=== PATIENT | male | born 1955 | race Caucasian/White ===

== ENCOUNTER 2022-07-26 10:10 | Emergency (ER) | payer MEDICARE, BC, SELFPAY ==
[2022-07-26 10:12] VITALS: BP 128/77; PULSE 76; RESP 16; TEMP 35.9; O2SAT 97; BMI 27.9
--- NOTE | 2022-07-26 10:29 | ED.GENADULT ---
HPI - General Adult General Chief complaint: Cough Stated complaint: Cough, congestion for 2 weeks Time Seen by Provider: 07/26/22 10:15 Source: patient Mode of arrival: ambulatory Limitations: no limitations History of Present Illness HPI narrative: Patient is a 67 year male coming in today complaining of upper respiratory symptoms going on for 2 weeks. States that he coughs on and off. Sometimes he has chills, however, this occurred when the symptoms 1st started when he has not had any for quite some time. He denies any fevers. He states that his appetite has been wonderful and that he has been sleeping really well at night. He complains of feeling congested with a hoarse voice. No weight changes. He states that he generally feels better and feels that his symptoms have gotten better including a slight amelioration of his cough, fatigue and congestion, however, he is not completely recovered. He comes into the ER today to make sure that he isn't missing something that he should be doing to get better. Patient does have Crohn's disease and is on Remicade injections. Related Data Home Medications Medication Instructions Recorded Confirmed atorvastatin 40 mg tablet 40 mg PO DAILY 07/26/22 07/26/22 cyanocobalamin (vitamin B-12) 1,000 mcg IM .monthly 07/26/22 07/26/22 1,000 mcg/mL injection solution fluticasone 100 mcg-salmeterol 50 1 inh inhalation Q12H 07/26/22 07/26/22 mcg/dose blistr powdr for inhalation (Advair Diskus) hydrochlorothiazide 25 mg tablet 25 mg PO DAILY 07/26/22 07/26/22 potassium chloride 10 mEq 10 meq PO DAILY 07/26/22 07/26/22 tablet,extended release Allergies Allergy/AdvReac Type Severity Reaction Status Date / Time No Known Drug Allergies Allergy Verified 07/26/22 10:18 Review of Systems Status of ROS: Reports: 10 or more systems reviewed and unremarkable except as noted in History and below Exam Narrative: Exam Narrative: Well-nourished well-developed patient in no acute distress. Alert and oriented. Answers questions appropriately. Mood and affect are appropriate. Thoughts are goal oriented and rational. No tangential or magical thinking noted. Patient speaks in full sentences without needing to catch their breath. Speech is not slurred or pressured. He does have a hoarse voice. HEENT: Normocephalic atraumatic. Pupils are equally round reactive to light. Extraocular muscles are intact. Conjunctivae are moist without any icterus noted. Moist mucous membranes. Posterior pharynx is normal. Neck is soft without any lymphadenopathy or thyromegaly. No masses are appreciated. He can breathe through each naris without difficulty. Cardiovascular: Heart is regular rate and rhythm S1 and S2 are present without any murmurs. Lungs: Clear to auscultation bilaterally no wheezes rhonchi or rales are appreciated. Patient takes deep breaths without any discomfort. Abdomen: Soft and nontender nondistended with normal bowel sounds. Extremities: Bilateral lower extremities are without edema. Skin: Well perfused without any obvious rashes. Const: Vital Signs, click to edit/add: Vital Signs - 24 hr 07/26/22 10:12 Temperature 96.7 F L Pulse Rate [Right Pulse Oximeter] 76 Respiratory Rate 16 Blood Pressure [Ri ght Upper Arm] 128/77 Pulse Oximetry 97 Oxygen Delivery Me thod Room Air Course Vital Signs Vital signs: Initial Vital Signs Temperature 96.7 F L 07/26/22 10:12 Temperature Source Temporal Artery Scan 07/26/22 10:12 Pulse Rate 76 07/26/22 10:12 Respiratory Rate 16 07/26/22 10:12 Blood Pressure 128/77 07/26/22 10:12 Blood Pressure Mean 94 07/26/22 10:12 Blood Pressure Position Sitting 07/26/22 10:12 Pulse Oximetry 97 07/26/22 10:12 Oxygen Delivery Method 07/26/22 10:12 Vital Signs Temperature 96.7 F L 07/26/22 10:12 Pulse Rate 76 07/26/22 10:12 Respiratory Rate 16 07/26/22 10:12 Blood Pressure 128/77 07/26/22 10:12 Pulse Oximetry 97 07/26/22 10:12 Oxygen Delivery Method 07/26/22 10:12 Temperature 96.7 F L 07/26/22 10:12 Pulse Rate 76 07/26/22 10:12 Respiratory Rate 16 07/26/22 10:12 Blood Pressure 128/77 07/26/22 10:12 Pulse Oximetry 97 07/26/22 10:12 Oxygen Delivery Method 07/26/22 10:12 Medical Decision Making MDM Narrative Medical decision making narrative: [age] year old male with cold symptoms going on for 2 weeks. He has a normal appetite, sleeping well at night, no fevers. He has a normal exam without any lung abnormalities noted. We discussed doing further testing such as x-ray and lab work, however, I do not feel that this is necessary given his history and physical today. Patient tells me that he feels comfortable not doing any further testing today as well. We discussed reasons to return to the ER which would include worsening symptoms, fever. Patient felt comfortable with this. Discharge Plan Discharge Clinical Impression: URI (upper respiratory infection) Patient Disposition: Home, Self-Care Condition: Stable Additional Instructions: Follow-up with your primary care provider if you feel like you are not improving over the next 1-2 weeks. Return to the ER if you develop a fever, vomiting or worsening symptoms. Prescriptions: No Action atorvastatin 40 mg tablet 40 mg PO DAILY Label Comments: TAKE ONE TABLET BY MOUTH ONE TIME DAILY AT BEDTIME cyanocobalamin (vitamin B-12) 1,000 mcg/mL solution 1,000 mcg IM .monthly Label Comments: INJECT 1 ML INTRAMUSCULARLY ONCE A MONTH. fluticasone propion-salmeterol [Advair Diskus] 100-50 mcg/dose blister with device 1 inh INHALATION Q12H hydrochlorothiazide 25 mg tablet 25 mg PO DAILY Label Comments: Take 0.5 Tablets (12.5 mg) by mouth once daily potassium chloride 10 mEq tablet extended release 10 meq PO DAILY Label Comments: TAKE ONE TABLET BY MOUTH ONE TIME DAILY with a meal Follow Up/Referrals: Saskia Uriostegui MD [Primary Care Provider] - Stand Alone Forms: [facility] Info Instructions
== END 2022-07-26 10:47 | disposition home or self-care (01) ==
LOC: ED 10:33
PROVIDERS: Emergency Provider Family Medicine; PCP Family Medicine
DX: J06.9 Acute upper respiratory infection, unspecified (principal)
CPT/HCPCS: 99282; 99283

== ENCOUNTER 2023-06-20 09:20 | Emergency (ER) | payer MEDICARE, BC, SELFPAY ==
[2023-06-20 09:29] VITALS: BP 155/91; PULSE 60; RESP 18; TEMP 36.1; O2SAT 96; BMI 26.6
[2023-06-20 09:45] LABS: Appearance Urine Slightly Cloudy (Clear); Bilirubin Urine Negative (Negative); Blood Urine 3+ (Negative); Color Urine Yellow (Yellow); Glucose Urine Negative (Negative); Ketones Urine Negative (Negative); Leukocyte Esterase Urine Negative (Negative); Nitrite Urine Negative (Negative); Protein Urine Trace (Negative); Specific Gravity Urine 1.025 (1.000-1.030); Urobilinogen Urine 0.2 (0.2-1.0); pH Urine 5.5 (5.0-8.5)
[2023-06-20 09:50] LABS: Bacteria Urine Few; Mucus Urine Few; RBC Urine >100 (0-2); Squamous Epithelial Cell Urine Few (None-Few); WBC Urine 0-2 (0-5)
--- NOTE | 2023-06-20 09:58 | ED_ITS ---
HPI - General Adult General Chief complaint: Flank Pain Stated complaint: kidney stones Time Seen by Provider: 06/20/23 09:57 History of Present Illness HPI narrative: pt states he has history of kidney stones, sees urologist in [place]. last kidney stones were 4-5 months ago bilateral stones. pt woke this morning with right flank pain, feels like i have a stone. Pain 5/10. 67-year-old man presenting to the emergency department with complaint of right low back pain. Known history of nephrolithiasis. He says last imaging would of been 3 or 4 months ago. Also had lithotripsy for 8 and 10 mm stones. Uncertain stone burden. He isn't noting any hematuria or dysuria. No fever. No nausea. He says that he was told that if he thinks he is starting to have a kidney stone again he suppose to get in right away, inferring and then stating that he is to have CT imaging. This was while I was enquiring about most recent imaging discussing alternatives to immediate CT imaging Related Data Home Medications Medication Instructions Recorded Confirmed atorvastatin 40 mg tablet 40 mg PO DAILY 07/26/22 07/26/22 cyanocobalamin (vitamin B-12) 1,000 mcg IM .monthly 07/26/22 07/26/22 1,000 mcg/mL injection solution fluticasone 100 mcg-salmeterol 50 1 inh inhalation Q12H 07/26/22 07/26/22 mcg/dose blistr powdr for inhalation (Advair Diskus) hydrochlorothiazide 25 mg tablet 25 mg PO DAILY 07/26/22 07/26/22 potassium chloride 10 mEq 10 meq PO DAILY 07/26/22 07/26/22 tablet,extended release Previous Rx's Medication Instructions Recorded hydrocodone 5 mg-acetaminophen 325 1 tab PO QID pain #15 tabs 06/20/23 mg tablet oxycodone-acetaminophen 5 mg-325 1 - 2 tab PO Q6H PRN pain #12 tabs 06/20/23 mg tablet (Percocet) tamsulosin 0.4 mg capsule (Flomax) 0.4 mg PO DAILY #15 caps 06/20/23 Allergies Allergy/AdvReac Type Severity Reaction Status Date / Time No Known Drug Allergies Allergy Verified 07/26/22 10:18 Review of Systems Status of ROS: Reports: 6 or more systems reviewed and unremarkable except as noted in History and below [facility] Social History Smoking Status: Never smoker Do you use any of these nicotine containing products: None How often do you have a drink containing alcohol: never AUDIT-C Alcohol total score: 0 Non-prescribed substance use: denies use service: No Exam Narrative: Exam Narrative: Is actually sleeping when I enter the room. Wakes easily. Breathing easily. Skin is warm and dry. Is not demonstrating any percussive tenderness at the flank. Abdomen is soft and nontender. Normoactive bowel sounds. Extremities are well perfused without edema. Heart in regular to nearly bradycardic rate in normal rhythm. Const: Vital Signs, click to edit/add: Vital Signs - 24 hr 06/20/23 09:29 06/20/23 11:34 06/20/23 12:04 Temperature 97.0 F L 97.6 F 98.0 F Pulse Rate [Pulse Oximeter] 60 60 60 Respiratory Rate 18 16 16 Blood Pressure [Ri t Upper Arm] 155/91 H 106/68 138/65 Pulse Oximetry 96 98 98 Oxygen Delivery Me thod Room Air Room Air Room Air Documenting provider has reviewed patient's vital signs: yes Course Vital Signs Vital signs: Initial Vital Signs Temperature 97.0 F L 06/20/23 09:29 Temperature Source Temporal Artery Scan 06/20/23 09:29 Pulse Rate 60 06/20/23 09:29 Pulse Rhythm Regular 06/20/23 09:29 Respiratory Rate 18 06/20/23 09:29 Blood Pressure 155/91 H 06/20/23 09:29 Blood Pressure Mean 112 H 06/20/23 09:29 Blood Pressure Position Supine 06/20/23 09:29 Pulse Oximetry 96 06/20/23 09:29 Oxygen Delivery Method Room Air 06/20/23 09:29 Vital Signs Temperature 97.0 F L 06/20/23 09:29 Pulse Rate 60 06/20/23 09:29 Respiratory Rate 18 06/20/23 09:29 Blood Pressure 155/91 H 06/20/23 09:29 Pulse Oximetry 96 06/20/23 09:29 Oxygen Delivery Method Room Air 06/20/23 09:29 Temperature 98.0 F 06/20/23 12:04 Pulse Rate 60 06/20/23 12:04 Respiratory Rate 16 06/20/23 12:04 Blood Pressure 138/65 06/20/23 12:04 Pulse Oximetry 98 06/20/23 12:04 Oxygen Delivery Method Room Air 06/20/23 12:04 Medical Decision Making MDM Narrative Medical decision making narrative: Certainly may be having a kidney stone. I did obtain urinalysis just prior to going into the room. Has a good deal of blood. Given history I would suspect a ureteral stone and colic. I have been discussing that if stone burden only indicated 2 mm stones perhaps on recent imaging perhaps a could be deferred but expectations and recommendations apparently are for imaging. I have ordered a CT. Differential otherwise would include vascular disruption, low back pain of varying etiologies. Labs are pending as well. I go over again with him his level of pain and he said he would like some pain medications. IV with normal saline be given along with ketorolac and morphine. Labs reviewed. Creatinine is 1.5. I did review CT imaging of the abdomen and pelvis Radiology over-read below. IMPRESSION: 1. Right pelvocaliectasis and ureterectasis with abrupt transition in the pelvis. There is a 5 mm calculus within the urinary bladder. A recently passed stone could result in a similar appearance. However, there is also some possible scarring with tethering in the distal ureter detailed above. If this is of concern, consider CT urogram versus nuclear medicine Lasix scintigraphy. 2. Multiple nonobstructing left renal calculi. Spoke to [place] [facility] on-call today and reviewed images, symptoms. Recommending outpatient follow-up. Already scheduled for September See patient discharge plan Lab Data Lab results reviewed: Yes I reviewed the patient's lab results Labs: Lab Results 06/20/23 06/20/23 06/20/23 Range/Units 10:10 Unknown Unknown WBC 5.06 (4.50-11.00) K/uL RBC 4.08 L (4.30-5.90) m/uL Hgb 12.5 L (13.5-17.5) gm/dL Hct 38.6 (37.0-53.0) % MCV 95 (80-100) fL MCH 31 (26-34) pg MCHC 32 (32-36) gm/dL RDW Coeff of [place] 12.4 (11.5-15.5) % Plt Count 152 (140-440) K/uL Neut % (Auto) 63.4 (42.0-72.0) % Lymph % (Auto) 22.1 (20-44) % [place] % (Auto) 11.1 H (0.0-11.0) % Eos % (Auto) 3.0 (0.0-7.0) % Baso % (Auto) 0.4 (0.0-3.0) % Neut # (Auto) 3.21 (1.7-7.0) K/uL Lymph # (Auto) 1.12 (0.90-2.90) K/uL [place] # (Auto) 0.60 (0.00-0.90) K/UL Eos # (Auto) 0.15 (0.00-0.50) K/uL Baso # (Auto) 0.02 (0.00-0.30) K/uL Abs Immat Gran (auto) 0.00 (0.00-0.30) K/uL Imm/Tot Granulo (auto) 0.0 % Sodium 139 (135-149) mmol/L Potassium 3.9 (3.6-5.1) mmol/L Chloride 103 (96-114) mmol/L Carbon Dioxide 26 (20-32) mmol/L Anion Gap 10 (7-15) mEq/L BUN 11 (7-30) mg/dL Creatinine 1.5 (0.5-1.5) mg/dL Estimated Creat Clear 46.48 Estimated GFR 50 ml/min Glucose 90 (60-115) mg/dL Calcium 8.6 (8.4-10.6) mg/dL Urine Color Yellow (Yellow) Urine Appearance Slightly Cloudy A (Clear) Urine pH 5.5 (5.0-8.5) Ur Specific [place] 1.025 (1.000-1.030) Urine Protein Trace A (Negative) Urine Glucose (UA) Negative (Negative) Urine Ketones Negative (Negative) Urine Blood 3+ A (Negative) Urine Nitrite Negative (Negative) Urine Bilirubin Negative (Negative) Urine Urobilinogen 0.2 (0.2-1.0) Ur Leukocyte Esterase Negative (Negative) Urine RBC Cancelled >100 A Urine WBC Cancelled Urine WBC Clumps Ur Squamous Epith Cells Andi Biurate Crystals Calcium Carbonate Cryst Calcium Phosphate Cryst Calcium Oxalate Crystal Cystine Crystals Uric Acid Crystals Triple Phos Crystals Sulfur Crystals Cholesterol Crystals Tyrosine Crystals Hippuric Acid Crystals Amorphous Sediment Other Sediment Urine Bacteria Fatty Casts Hyaline Casts Fine Granular Casts Coarse Granular Casts Waxy Casts RBC Casts WBC Casts Other Casts Urine Starch Urine Mucus Urine Trichomonas Urine Yeast 06/20/23 06/20/23 06/20/23 Range/Units Unknown Unknown Unknown WBC (4.50-11.00) K/uL RBC (4.30-5.90) m/uL Hgb (13.5-17.5) gm/dL Hct (37.0-53.0) % MCV (80-100) fL MCH (26-34) pg MCHC (32-36) gm/dL RDW Coeff of [place] (11.5-15.5) % Plt Count (140-440) K/uL Neut % (Auto) (42.0-72.0) % Lymph % (Auto) (20-44) % [place] % (Auto) (0.0-11.0) % Eos % (Auto) (0.0-7.0) % Baso % (Auto) (0.0-3.0) % Neut # (Auto) (1.7-7.0) K/uL Lymph # (Auto) (0.90-2.90) K/uL [place] # (Auto) (0.00-0.90) K/UL Eos # (Auto) (0.00-0.50) K/uL Baso # (Auto) (0.00-0.30) K/uL Abs Immat Gran (auto) (0.00-0.30) K/uL Imm/Tot Granulo (auto) % Sodium (135-149) mmol/L Potassium (3.6-5.1) mmol/L Chloride (96-114) mmol/L Carbon Dioxide (20-32) mmol/L Anion Gap (7-15) mEq/L BUN (7-30) mg/dL Creatinine (0.5-1.5) mg/dL Estimated Creat Clear Estimated GFR ml/min Glucose (60-115) mg/dL Calcium (8.4-10.6) mg/dL Urine Color (Yellow) Urine Appearance (Clear) Urine pH (5.0-8.5) Ur Specific [place] (1.000-1.030) Urine Protein (Negative) Urine Glucose (UA) (Negative) Urine Ketones (Negative) Urine Blood (Negative) Urine Nitrite (Negative) Urine Bilirubin (Negative) Urine Urobilinogen (0.2-1.0) Ur Leukocyte Esterase (Negative) Urine RBC Urine WBC 0-2 Urine WBC Clumps Cancelled Ur Squamous Epith Cells Cancelled Few [place] Biurate Crystals Cancelled Calcium Carbonate Cryst Cancelled Calcium Phosphate Cryst Cancelled Calcium Oxalate Crystal Cancelled Cystine Crystals Cancelled Uric Acid Crystals Cancelled Triple Phos Crystals Cancelled Sulfur Crystals Cancelled Cholesterol Crystals Cancelled Tyrosine Crystals Cancelled Hippuric Acid Crystals Cancelled Amorphous Sediment Cancelled Other Sediment Cancelled Urine Bacteria Cancelled Few A Fatty Casts Cancelled Hyaline Casts Cancelled Fine Granular Casts Cancelled Coarse Granular Casts Cancelled Waxy Casts Cancelled RBC Casts Cancelled WBC Casts Cancelled Other Casts Cancelled Urine Starch Cancelled Urine Mucus Cancelled Urine Trichomonas Urine Yeast 06/20/23 Range/Units Unknown WBC (4.50-11.00) K/uL RBC (4.30-5.90) m/uL Hgb (13.5-17.5) gm/dL Hct (37.0-53.0) % MCV (80-100) fL MCH (26-34) pg MCHC (32-36) gm/dL RDW Coeff of [place] (11.5-15.5) % Plt Count (140-440) K/uL Neut % (Auto) (42.0-72.0) % Lymph % (Auto) (20-44) % [place] % (Auto) (0.0-11.0) % Eos % (Auto) (0.0-7.0) % Baso % (Auto) (0.0-3.0) % Neut # (Auto) (1.7-7.0) K/uL Lymph # (Auto) (0.90-2.90) K/uL [place] # (Auto) (0.00-0.90) K/UL Eos # (Auto) (0.00-0.50) K/uL Baso # (Auto) (0.00-0.30) K/uL Abs Immat Gran (auto) (0.00-0.30) K/uL Imm/Tot Granulo (auto) % Sodium (135-149) mmol/L Potassium (3.6-5.1) mmol/L Chloride (96-114) mmol/L Carbon Dioxide (20-32) mmol/L Anion Gap (7-15) mEq/L BUN (7-30) mg/dL Creatinine (0.5-1.5) mg/dL Estimated Creat Clear Estimated GFR ml/min Glucose (60-115) mg/dL Calcium (8.4-10.6) mg/dL Urine Color (Yellow) Urine Appearance (Clear) Urine pH (5.0-8.5) Ur Specific [place] (1.000-1.030) Urine Protein (Negative) Urine Glucose (UA) (Negative) Urine Ketones (Negative) Urine Blood (Negative) Urine Nitrite (Negative) Urine Bilirubin (Negative) Urine Urobilinogen (0.2-1.0) Ur Leukocyte Esterase (Negative) Urine RBC Urine WBC Urine WBC Clumps Ur Squamous Epith Cells [place] Biurate Crystals Calcium Carbonate Cryst Calcium Phosphate Cryst Calcium Oxalate Crystal Cystine Crystals Uric Acid Crystals Triple Phos Crystals Sulfur Crystals Cholesterol Crystals Tyrosine Crystals Hippuric Acid Crystals Amorphous Sediment Other Sediment Urine Bacteria Fatty Casts Hyaline Casts Fine Granular Casts Coarse Granular Casts Waxy Casts RBC Casts WBC Casts Other Casts Urine Starch Urine Mucus Few A Urine Trichomonas Cancelled Urine Yeast Cancelled Discharge Plan Discharge Clinical Impression: Ureteral colic, Ureteral stone Patient Disposition: Home w/ Parent or Adult Condition: Improved Instructions: Renal Colic (ED) Additional Instructions: Continue to focus on hydration. Please check in with [place] [facility] to see if they have any further recommendations. Medications sent in to pharmacy. Consider taking the Flomax regularly over the next few days until sure of stone passage. Consider straining your urine over the next week. Return for persistent pain after 4 days, marked increase in persistent pain, repeated vomiting, fever. Take this disc of images to follow up. Prescriptions: New oxycodone-acetaminophen [Percocet] 5-325 mg tablet 1 - 2 tab PO Q6H PRN (Reason: pain) Qty: 12 0RF tamsulosin [Flomax] 0.4 mg capsule 0.4 mg PO DAILY Qty: 15 1RF hydrocodone-acetaminophen 5-325 mg tablet 1 tab PO QID Qty: 15 0RF No Action atorvastatin 40 mg tablet 40 mg PO DAILY Patient Comments: TAKE ONE TABLET BY MOUTH ONE TIME DAILY AT BEDTIME cyanocobalamin (vitamin B-12) 1,000 mcg/mL solution 1,000 mcg IM .monthly Patient Comments: INJECT 1 ML INTRAMUSCULARLY ONCE A MONTH. fluticasone propion-salmeterol [Advair Diskus] 100-50 mcg/dose blister with device 1 inh INHALATION Q12H hydrochlorothiazide 25 mg tablet 25 mg PO DAILY Patient Comments: Take 0.5 Tablets (12.5 mg) by mouth once daily potassium chloride 10 mEq tablet extended release 10 meq PO DAILY Patient Comments: TAKE ONE TABLET BY MOUTH ONE TIME DAILY with a meal Follow Up/Referrals: Saskia Uriostegui MD [Referring] - Stand Alone Forms: [facility] Info Instructions
--- NOTE | 2023-06-20 10:04 | CRLHL7_ITS ---
For Patients: As a result of the 21st Century Cures Act, medical imaging exams and procedure reports are released immediately into your electronic medical record. You may view this report before your referring provider. If you have questions, please contact your health care provider. INDICATION: Right flank pain and history of kidney stones COMPARISON: 05/18/2021 TECHNIQUE: CT of the abdomen and pelvis without intravenous contrast. Multiplanar axial, coronal, and sagittal reformats were reconstructed. Intravenous contrast: None. Oral contrast was not administered. FINDINGS: Lung bases: Bibasilar peripheral reticulation. Liver: Normal size and non-contrast attenuation. Gallbladder and biliary tree: Large calcified stone at the fundus. No cholecystitis. No biliary duct dilation. Pancreas: Normal. Spleen: Normal size. Adrenal glands: Normal. No nodules. Kidneys and bladder: There is significant right pelvocaliectasis and proximal and mid ureterectasis. There is abrupt transition or the ureter passes over the internal iliac artery. There appears to be some soft tissue distortion and tethering at this location. The calcifications in the vicinity are all atherosclerotic, confirmed by comparison to the previous exam. The distal ureter is decompressed. No right perinephric stranding. No right intrarenal calculi. No solid or cystic mass seen. Multiple left intrarenal calculi. No left ureteral calculi. No left urinary tract dilatation. No solid or cystic renal mass. The urinary bladder is partially filled. There is a 5 mm calculus in the posterior dependent urinary bladder. GI: Right colectomy. Focally dilated small bowel at the anastomosis in the right upper lateral abdomen. No dilatation of what appears to be the ileocolonic anastomosis in the anterior central abdomen, at the level of the mid transverse colon. No findings of bowel obstruction. No mesenteric inflammation. There is a moderate stool burden.. Vessels: Normal caliber abdominal aorta with moderate calcified atherosclerotic plaques. Peritoneum: No free fluid. Lymph nodes: No adenopathy. Pelvis: No pelvic mass. Bones: No fractures. No focal bone lesions. Multilevel disc degenerative change. Abdominal wall: Hypervascular lipomatous hypertrophy in and around the left internal oblique muscle in the left lower quadrant. There is some adjacent skin tethering in distortion, question prior colostomy site. IMPRESSION: 1. Right pelvocaliectasis and ureterectasis with abrupt transition in the pelvis. There is a 5 mm calculus within the urinary bladder. A recently passed stone could result in a similar appearance. However, there is also some possible scarring with tethering in the distal ureter detailed above. If this is of concern, consider CT urogram versus nuclear medicine Lasix scintigraphy. 2. Multiple nonobstructing left renal calculi. Please note that all CT scans at this facility use dose modulation, iterative reconstruction, and/or weight-based dosing when appropriate to reduce radiation dose to as low as reasonably achievable. Dictated by Felicia Prasad MD @ 06/20/2023 10:44:48 AM (Electronically Signed)
[2023-06-20 10:18] LABS: Basophils Absolute Auto 0.02 K/uL (0.00-0.30); Basophils Percent Auto 0.4 % (0.0-3.0); Eosinophils Absolute Auto 0.15 K/uL (0.00-0.50); Hematocrit 38.6 % (37.0-53.0); Hemoglobin* 12.5 gm/dL (13.5-17.5); Lymphocytes Absolute Auto 1.12 K/uL (0.90-2.90); Lymphocytes Percent Auto 22.1 % (20-44); Mean Corpuscular HGB Conc 32 gm/dL (32-36); Mean Corpuscular Hemoglobin 31 pg (26-34); Mean Corpuscular Volume 95 fL (80-100); Monocytes Percent Auto 11.1 % (0.0-11.0); Neutrophils Absolute Auto 3.21 K/uL (1.7-7.0); Neutrophils Percent Auto 63.4 % (42.0-72.0); Platelet Count* 152 K/uL (140-440); RDW Coefficient of Variation % 12.4 % (11.5-15.5); Red Blood Count 4.08 m/uL (4.30-5.90); White Blood Count* 5.06 K/uL (4.50-11.00)
[2023-06-20] MEDS: 0.9 % SODIUM CHLORIDE 1000 ml 1,000 ML IV (10:19)
[2023-06-20] MEDS: KETOROLAC 30 MG/ML inj IVP (10:19)
[2023-06-20] MEDS: MORPHINE 4 MG/ML INJ IVP (10:21)
[2023-06-20 10:31] LABS: Chloride* 103 mmol/L (96-114); Sodium* 139 mmol/L (135-149)
[2023-06-20 10:32] LABS: Potassium* 3.9 mmol/L (3.6-5.1)
[2023-06-20 10:34] LABS: Anion Gap 10 mEq/L (7-15); Carbon Dioxide* 26 mmol/L (20-32); Creatinine* 1.5 mg/dL (0.5-1.5); Est. Creatinine Clearance* 46.48; Estimated Glomerular Filt Rate 50 ml/min
[2023-06-20 10:35] LABS: Blood Urea Nitrogen* 11 mg/dL (7-30); Calcium* 8.6 mg/dL (8.4-10.6); Glucose* 90 mg/dL (60-115)
[2023-06-20 10:38] LABS: Slide Review Reflex No
[2023-06-20 11:34] VITALS: BP 106/68; PULSE 60; RESP 16; TEMP 36.4; O2SAT 98
[2023-06-20 12:04] VITALS: BP 138/65; PULSE 60; RESP 16; TEMP 36.7; O2SAT 98
== END 2023-06-20 13:17 | disposition home or self-care (01) ==
PROVIDERS: Emergency Provider Family Medicine
DX: N23 Unspecified renal colic (principal); N20.1 Calculus of ureter
CPT/HCPCS: 36415; 74176; 80048; 81001; 81015; 85025; 87086; 96374; 96375; 99284; J1885; J2270; J7030